=== PATIENT | male | born 1955 | race Caucasian/White ===

== ENCOUNTER 2023-03-16 14:26 | Emergency (ER) | payer MEDICARE, OTHER, SELFPAY ==
[2023-03-16 14:26] VITALS: BP 162/89; PULSE 97; RESP 17; TEMP 36.8; O2SAT 93; BMI 25.2
[2023-03-16 14:30] VITALS: BP 155/86; PULSE 92; RESP 20; O2SAT 94
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
--- NOTE | 2023-03-16 14:59 | PC.NURSE ---
updated pt on POC, will be going over for head ct
[2023-03-16 15:00] VITALS: BP 141/82; PULSE 80; RESP 18; O2SAT 95
--- NOTE | 2023-03-16 15:06 | PC.NURSE ---
pt to Ct
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
[2023-03-16 16:13] VITALS: BP 145/68; PULSE 79; RESP 17; TEMP 36.7; O2SAT 98
== END 2023-03-16 16:18 | disposition home or self-care (01) ==
PROVIDERS: Emergency Provider Family Medicine; PCP Family Medicine
DX: S01.01XA Laceration without foreign body of scalp, initial encounter (principal); W22.8XXA Striking against or struck by other objects, initial encounter; Z23 Encounter for immunization
CPT/HCPCS: 12001; 70450; 90715; 96372; 99284